=== PATIENT | male | born 1975 | race Two or more races ===

== ENCOUNTER 2018-10-21 14:52 | Outpatient (CLI) | payer SELFPAY | END 2018-10-21 14:53 | disposition critical access hospital (66) | LOC: EMS 14:52 | PROVIDERS: ATTEND Surgery | DX: R56.9 Unspecified convulsions (principal) | CPT/HCPCS: A0425; A0429 ==

== ENCOUNTER 2018-10-21 15:10 | Emergency (ER) | payer SELFPAY ==
--- NOTE | 2018-10-21 15:14 | ED Physician Documentation ---
PD HPI SEIZURE - Stated complaint Stated Complaint: Seizure - History obtained from History obtained from: Patient, Friend (who translated for him with patient consent.) - History of Present Illness Timing - onset: Today Witnessed: Witnessed Number of seizures: Multiple (2 seizures today, each for 1-2 minutes.), Lasted minutes Description of seizure activity: Generalized Injury during seizure: None. No: Fell, Head injury Associated symptoms: Nausea / vomiting. No: Palpitations History of seizures: Prior EtOH wdrawal sz Contributing factors: EtOH withdrawal (he moved here to be with friend and start work at a job. He needed to be sober for that, and so had not drank for 2-3 days, with shakiness and nausea/vomiting. Had seizure today. Has had 2-3 seizures in the past couple of years, related to alcohol use/withdrawal. Did not have seizures when younger.) Review of Systems Constitutional: denies: Fever, Chills Nose: denies: Rhinorrhea / runny nose, Congestion Throat: denies: Sore throat Respiratory: denies: Cough GI: reports: Nausea, Vomiting Musculoskeletal: denies: Neck pain Neurologic: reports: Headache (since , not prior). denies: Focal weakness, Numbness PD PAST MEDICAL HISTORY - Past Medical History Cardiovascular: None Respiratory: None Neuro: Seizure disorder (related to alcohol) Endocrine/Autoimmune: None GI: None Musculoskeletal: None - Past Surgical History Past Surgical History: No - Present Medications Home Medications: Ambulatory Orders Medication Instructions Recorded Confirmed Hydrocodone/Acetaminophen [[place] 1 each PO Q6H PRN #12 tablet 10/21/18 5-325 Tablet] Ondansetron Odt [Zofran] 4 mg TL Q6H PRN #10 tablet 10/21/18 chlordiazePOXIDE [Librium] 25 - 50 mg PO Q6H PRN #30 capsule 10/21/18 cloNIDine [Catapres] 0.1 mg PO BID #15 tablet 10/21/18 - Allergies Allergies/Adverse Reactions: Allergies Allergy/AdvReac Type Severity Reaction Status Date / Time No Known Drug Allergies Allergy Verified 10/21/18 15:18 PD ED PE NORMAL - Vitals Vital signs reviewed: Yes - General General: Alert and oriented X 3, Well developed/nourished - HEENT HEENT: Atraumatic, Pharynx benign, Other (shaky arms and legs, but with symmetric strength. No oral lesions/abrasions. ). No: Moist mucous membranes - Neck Neck: Supple, no meningeal sign, No bony TTP, No adenopathy - Cardiac Cardiac: No murmur. No: RRR (tachycardic but regular) - Respiratory Respiratory: Clear bilaterally - Abdomen Abdomen: Soft, Non tender - Back Back: No spinal TTP - Derm Derm: Normal color, Warm and dry - Extremities Extremities: No tenderness to palpate, Normal ROM s pain - Neuro Neuro: Alert and oriented X 3, No motor deficit, Normal speech Results - Vitals Vitals: Vital Signs - 24 hr 10/21/18 10/21/18 10/21/18 15:13 15:34 17:18 Temperature 37.4 C Heart Rate 104 H 97 91 Respiratory 14 14 12 Rate Blood Pressure 155/106 H 152/103 H 148/88 H O2 Saturation 97 97 93 Oxygen O2 Source Room air - Labs Labs: Laboratory Tests 10/21/18 10/21/18 16:05 16:05 WBC 5.2 RBC 4.79 Hgb 11.7 L Hct 34.8 L MCV 72.8 L MCH 24.4 L MCHC 33.5 RDW 16.3 H Plt Count 70 L MPV 7.2 L Neut # (Auto) 4.3 Lymph # (Auto) 0.4 L Schley # (Auto) 0.4 Eos # (Auto) 0.0 Baso # (Auto) 0.0 Absolute Nucleated RBC 0.01 Nucleated RBC % 0.3 Sodium 131 L Potassium 3.9 Chloride 92 L Carbon Dioxide 28 Anion Gap 11.0 BUN 10 Creatinine 0.7 Estimated GFR (MDRD) 125 Glucose 111 H Calcium 9.6 Total Bilirubin 2.2 H AST 318 H ALT 126 H Alkaline Phosphatase 57 Total Protein 7.3 Albumin 4.0 Globulin 3.3 Albumin/Globulin Ratio 1.2 Lipase 92 H Ethyl Alcohol < 5.0 - Rads (name of study) head CT Radiology: Prelim report reviewed (no acute process), EMP read contemporaneously, See rad report PD MEDICAL DECISION MAKING - ED course Complexity details: re-evaluated patient (less shaky and he is able to take fluid without nausea after meds. He feels able to go home. ), considered differential, d/w patient Departure - Departure Disposition: 01 Home, Self Care Clinical Impression: Seizure Alcohol withdrawal Qualifiers: Complication of substance-induced condition: uncomplicated Qualified Code(s): F10.230 - Alcohol dependence with withdrawal, uncomplicated Condition: Stable Record reviewed to determine appropriate education?: Yes Instructions: ED Seizure Alcohol Withdrawal, ED Withdrawal Alcohol Follow-Up: [facility] [Provider Group] [facility] [Provider Group] Prescriptions: chlordiazePOXIDE [Librium] 25 - 50 mg PO Q6H PRN #30 capsule PRN Reason: Alcohol Withdrawal cloNIDine [Catapres] 0.1 mg PO BID #15 tablet Hydrocodone/Acetaminophen [[place]ice 5-325 Tablet] 1 each PO Q6H PRN #12 tablet PRN Reason: Pain Ondansetron Odt [Zofran] 4 mg TL Q6H PRN #10 tablet PRN Reason: Nausea / Vomiting Comments: Drink lots of fluids and stay well-hydrated. No alcohol use. Use the Librium 1-2 tablets every 6 hours if needed for shakiness and withdrawal. Taper down the use of it less amount and less often over the next week to 10 days until you are not needing any more. Ondansetron if needed for nausea. Clonidine twice daily to help with withdrawal as well. Add Tylenol or hydrocodone if needed for headaches and pains. Follow-up with a local clinic and call for an appointment. I put a couple of referral numbers on the instructions. Discharge Date/Time: 10/21/18 18:14
[2018-10-21] MEDS ORDERED: SODIUM CHLORIDE 0.9% 1,000 ML IV ONE (15:32)
[2018-10-21] MEDS ORDERED: LORazepam 2 MG/ML VIAL IVP STA (15:33)
[2018-10-21] MEDS ORDERED: ONDANSETRON 4 MG/2 ML VIAL IVP STA (15:33)
[2018-10-21] MEDS ORDERED: KETOROLAC 30 MG/ML VIAL IVP STA (15:33)
[2018-10-21 16:19] LABS: BASOPHILS % (AUTO) 0.9 %; EOSINOPHILS % (AUTO) 0.1 %; HGB - HEMOGLOBIN 11.7 g/dL (14.0-18.0); LYMPHOCYTES # (AUTO) 0.4 10^3/uL (1.5-3.5); LYMPHOCYTES % (AUTO) 7.2 %; MEAN CORPUSCULAR HEMOGLOBIN 24.4 pg (27.0-31.0); MEAN CORPUSCULAR HGB CONC 33.5 g/dL (32.0-36.0); MEAN CORPUSCULAR VOLUME 72.8 fL (80.0-94.0); MEAN PLATELET VOLUME 7.2 fL (7.4-11.4); MONOCYTES # (AUTO) 0.4 10^3/uL (0.0-1.0); MONOCYTES % (AUTO) 8.7 %; NEUTROPHILS # (AUTO) 4.3 10^3/uL (1.5-6.6); NEUTROPHILS % (AUTO) 83.1 %; PLT - PLATELET COUNT 70 10^3/uL (130-450); RED BLOOD COUNT 4.79 10^6/uL (4.70-6.10); RED CELL DISTRIBUTION WIDTH 16.3 % (12.0-15.0); WHITE BLOOD COUNT 5.2 x10^3/uL (4.8-10.8)
[2018-10-21 16:27] LABS: CALCIUM 9.6 mg/dL (8.5-10.3); CARBON DIOXIDE - CO2 28 mmol/L (21-32); CHLORIDE 92 mmol/L (101-111); GLUCOSE 111 mg/dL (70-100); SODIUM 131 mmol/L (135-145)
[2018-10-21] MEDS ORDERED: MORPHINE 2 MG/ML CARPUJECT IVP STA (16:40)
[2018-10-21] MEDS ORDERED: cloNIDine 0.1 MG TABLET PO STA (16:40)
[2018-10-21] MEDS ORDERED: ACETAMINOPHEN 1,000 MG/100 ML 100 ML IV STA (16:40)
--- NOTE | 2018-10-21 16:44 | CT Report ---
Reason: seizure x 2 today Procedure Date: 10/21/2018 Accession Number: [id number] / [id number] Procedure: CT - HEAD WO CPT Code: FULL RESULT: EXAM: CT HEAD EXAM DATE: 10/21/2018 03:52 PM. CLINICAL HISTORY: Seizure x 2 today. COMPARISON: None. TECHNIQUE: Multiaxial CT images were obtained from the foramen magnum to the vertex. Reformats: Sagittal and coronal. IV contrast: None. In accordance with CT protocol optimization, one or more of the following dose reduction techniques were utilized for this exam: automated exposure control, adjustment of mA and/or KV based on patient size, or use of iterative reconstructive technique. FINDINGS: Parenchyma: No intraparenchymal hemorrhage. No evidence of mass, midline shift, or CT findings of infarction. Molina-white differentiation is distinct. Extraaxial Spaces: Mild to moderate volume loss for age. No subdural or epidural collections identified. Ventricles: Normal in size and position. Sinuses and Orbits: Imaged paranasal sinuses, orbits, and mastoids show no significant abnormality. Bones: No evidence of fracture or calvarial defect. Other: None. IMPRESSION: No acute intracranial abnormality. RADIA
[2018-10-21 18:12] VITALS: BP 148/88
[2018-10-21 18:46] LABS: ALBUMIN/GLOBULIN RATIO 1.2 (1.0-2.2); ALKALINE PHOSPHATASE 57 IU/L (42-121); ALT ALANINE AMINOTRANSFERASE 126 IU/L (10-60); AST ASPARTATE AMINOTRANSFERASE 318 IU/L (10-42); BILIRUBIN,TOTAL 2.2 mg/dL (0.2-1.0); BUN - BLOOD UREA NITROGEN 10 mg/dL (6-20); CREATININE 0.7 mg/dL (0.6-1.2); GFR - MDRD 125 (>89); LIPASE 92 U/L (22-51); TOTAL PROTEIN 7.3 g/dL (6.7-8.2)
== END 2018-10-21 18:14 | disposition home or self-care (01) ==
LOC: ED 15:10
DX: R56.9 Unspecified convulsions (principal); F10.230 Alcohol dependence with withdrawal, uncomplicated
CPT/HCPCS: 36415; 70450; 80053; 80320; 83690; 85025; 96365; 96375; 99283; 99284; A9270; J0131; J2060; 82140

== ENCOUNTER 2018-12-31 07:56 | Outpatient (CLI) | payer SELFPAY | END 2018-12-31 07:57 | disposition critical access hospital (66) | LOC: EMS 07:56 | PROVIDERS: ATTEND Surgery | DX: R07.0 Pain in throat (principal) | CPT/HCPCS: A0425; A0429 ==

== ENCOUNTER 2018-12-31 08:15 | Emergency (ER) | payer SELFPAY ==
[2018-12-31] MEDS ORDERED: IOVERSOL 320 100 ML VIAL IVP ONE ×3 (08:16→10:14)
[2018-12-31] MEDS ORDERED: SODIUM CHLORIDE 0.9% 1,000 ML IV ONE (08:37)
[2018-12-31] MEDS ORDERED: DEXAMETHASONE 10 MG/ML VIAL IVP STA (08:38)
[2018-12-31] MEDS ORDERED: KETOROLAC 15 MG/ML VIAL IVP STA (08:38)
[2018-12-31] MEDS ORDERED: MORPHINE 10 MG/ML VIAL IVP STA (08:38)
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
[2018-12-31 09:00] LABS: BASOPHILS % (AUTO) 1.4 %; EOSINOPHILS % (AUTO) 0.8 %; HGB - HEMOGLOBIN 12.5 g/dL (14.0-18.0); LYMPHOCYTES # (AUTO) 1.3 10^3/uL (1.5-3.5); LYMPHOCYTES % (AUTO) 38.9 %; MEAN CORPUSCULAR HEMOGLOBIN 24.1 pg (27.0-31.0); MEAN CORPUSCULAR HGB CONC 32.3 g/dL (32.0-36.0); MEAN CORPUSCULAR VOLUME 74.6 fL (80.0-94.0); MEAN PLATELET VOLUME 6.1 fL (7.4-11.4); MONOCYTES # (AUTO) 0.4 10^3/uL (0.0-1.0); MONOCYTES % (AUTO) 11.8 %; NEUTROPHILS # (AUTO) 1.6 10^3/uL (1.5-6.6); NEUTROPHILS % (AUTO) 47.1 %; PLT - PLATELET COUNT 137 10^3/uL (130-450); RED BLOOD COUNT 5.21 10^6/uL (4.70-6.10); RED CELL DISTRIBUTION WIDTH 16.7 % (12.0-15.0); WHITE BLOOD COUNT 3.3 x10^3/uL (4.8-10.8)
[2018-12-31 09:21] LABS: ALBUMIN 4.2 g/dL (3.2-5.5); ALBUMIN/GLOBULIN RATIO 1.2 (1.0-2.2); BILIRUBIN,TOTAL 1.2 mg/dL (0.2-1.0); CALCIUM 8.8 mg/dL (8.5-10.3); CREATININE 0.6 mg/dL (0.6-1.2); TOTAL PROTEIN 7.6 g/dL (6.7-8.2)
--- NOTE | 2018-12-31 11:07 | CT Report ---
Reason: pain in throat; feels tight Procedure Date: 12/31/2018 Accession Number: [id number] / [id number] Procedure: CT - SOFT TISSUE NECK W CPT Code: FULL RESULT: EXAM: CT SOFT TISSUE NECK WITH CONTRAST. EXAM DATE: 12/31/2018 10:02 AM. HISTORY: Throat pain. Throat feels tight COMPARISONS: None. TECHNIQUE: Routine soft tissue neck CT protocol. Reconstructions: Coronal and sagittal. IV contrast: 80 cc Optiray 320. In accordance with CT protocol optimization, one or more of the following dose reduction techniques were utilized for this exam: automated exposure control, adjustment of mA and/or KV based on patient size, or use of iterative reconstructive technique. FINDINGS: No mass is present in either submandibular gland or in either parotid gland. The thyroid gland is not enlarged. The epiglottis is not thickened. Aryepiglottic folds are not thickened. No ring-enhancing fluid collection is seen associated either palatine tonsil. Parapharyngeal fat is symmetric. No mass is present in the nasopharynx. No mass or focal fluid collection is seen in the floor of mouth. No bulky lymphadenopathy is identified in the neck. No subglottic stenosis is seen. No bulky lymphadenopathy is seen in the visualized upper mediastinum. No suspicious spiculated mass is present in either lung apex. No enhancing mass is identified in the visualized brain. Expected enhancement is seen in the major dural venous sinuses. No prevertebral edema is present. Degenerative disk disease and osteophyte are seen at C5-C6, greater towards the right. A presumed chronic superior endplate compression deformity is present at T4. IMPRESSION: 1. No abscess is present in the neck. 2. Aryepiglottic folds and the epiglottis are not thickened. 3. No bulky lymphadenopathy is seen in the neck RADIA
[2018-12-31 13:00] VITALS: BP 123/86
== END 2018-12-31 13:07 | disposition home or self-care (01) ==
LOC: EDUNIT# → ED 08:15
DX: S10.0XXA Contusion of throat, initial encounter (principal); Y04.8XXA Assault by other bodily force, initial encounter; Y92.512 Supermarket, store or market as the place of occurrence of the external cause; F10.920 Alcohol use, unspecified with intoxication, uncomplicated
CPT/HCPCS: 36415; 70491; 80053; 80320; 83690; 85025; 96361; 96374; 99283; Q9967

== ENCOUNTER 2019-01-04 22:06 | Outpatient (CLI) | payer SELFPAY | END 2019-01-04 22:07 | disposition EMS.NT | LOC: EMS 22:06 | PROVIDERS: ATTEND Surgery | DX: R56.9 Unspecified convulsions (principal) ==

== ENCOUNTER 2019-03-15 02:09 | Outpatient (CLI) | payer SELFPAY | END 2019-03-15 02:10 | disposition critical access hospital (66) | LOC: EMS 02:09 | PROVIDERS: ATTEND Surgery | DX: M25.512 Pain in left shoulder (principal) | CPT/HCPCS: A0425; A0429 ==